=== PATIENT | female | born 1975 | race Caucasian/White ===

== ENCOUNTER 2017-10-06 14:27 | Emergency (ER) | payer OTHER ==
--- NOTE | 2017-10-06 14:50 | ERPHSYRPT ---
- History of Present Illness Time Seen by Provider: 10/06/17 14:37 Historian: patient, EMS Exam Limitations: no limitations Physician History: The patient is a 42-year-old female brought in by ambulance from home where she experienced a sudden onset of lower abdominal pain about 30 minutes before calling the ambulance. She describes the pain as very sharp. She was nauseated. She has a history of IBS and had just eaten a sandwich from [employer] when the pain began. She thought this pain was similar to what usually happens after eating. After she eats, she develops abdominal pain that is soon followed by an urge to have a bowel movement. The same thing happened today. She had a bowel movement after the pain had begun, but the pain did not subside after the bowel movement. She did not vomit. She denies fever or chills. Her LMP was 2 weeks ago. EMS gave the patient fentanyl 100 g and Zofran 4 mg IV. Her past medical history is significant for IBS, COPD, depression, and migraine headaches. Timing/Duration: today, hour(s) (1) Activities at Onset: other (eating) Quality: burning, cramping, sharpness, stabbing Abdominal Pain Onset Location: suprapubic Pain Radiation: no radiation Severity of Pain-Max: severe Severity of Pain-Current: severe Modifying Factors: Improves With: nothing Associated Symptoms: nausea Previous symptoms: same symptoms as today Allergies/Adverse Reactions: marijuana Allergy (Verified 10/06/17 14:53) acetaminophen [From Vicodin] Adverse Reaction (Verified 10/06/17 14:53) hydrocodone [From Vicodin] Adverse Reaction (Verified 10/06/17 14:53) morphine Adverse Reaction (Verified 10/06/17 14:53) Home Medications: Albuterol Sulfate [Albuterol Sulfate Hfa] 2 puffs Q12H PRN PRN 10/06/17 [History ] Fluoxetine HCl 20 mg [Prozac 20 MG] 80 mg DAILY 10/06/17 [History] Gabapentin [Neurontin] 300 mg PO TID 10/06/17 [History] - Review of Systems Constitutional: No Fever, No Chills Eyes: No Symptoms Ears, Nose, & Throat: No Symptoms Respiratory: No Cough, No Dyspnea Cardiac: No Chest Pain, No Edema, No Syncope Abdominal/Gastrointestinal: Abdominal Pain, Nausea, No Diarrhea Genitourinary Symptoms: No Dysuria Musculoskeletal: No Back Pain, No Neck Pain Skin: No Rash Neurological: No Dizziness, No Focal Weakness, No Sensory Changes Psychological: No Symptoms Endocrine: No Symptoms Hematologic/Lymphatic: No Symptoms Immunological/Allergic: No Symptoms All Other Systems: Reviewed and Negative - Nursing Vital Signs Nursing Vital Signs: Initial Vital Signs Temperature 97.9 F 10/06/17 14:29 Pulse Rate 88 10/06/17 14:29 Respiratory Rate 16 10/06/17 14:29 O2 Sat by Pulse Oximetry 99 10/06/17 14:29 Pain Scale Pain Intensity 5 - Physical Exam General Appearance: mild distress Eye Exam: PERRL/EOMI, eyes nml inspection Ears, Nose, Throat Exam: normal ENT inspection, pharynx normal, moist mucous membranes Neck Exam: normal inspection, non-tender, supple, full range of motion Respiratory Exam: normal breath sounds, lungs clear, No respiratory distress Cardiovascular Exam: regular rate/rhythm, normal heart sounds Gastrointestinal/Abdomen Exam: soft, normal bowel sounds, tenderness (RUQ ), No guarding Pelvic Exam: not done Rectal Exam: not done Back Exam: normal inspection, normal range of motion, No CVA tenderness, No vertebral tenderness Extremity Exam: normal inspection, normal range of motion, pelvis stable Neurologic Exam: alert, oriented x 3, cooperative, normal mood/affect, nml cerebellar function, sensation nml, No motor deficits Skin Exam: normal color, warm, dry SpO2 Interpretation: normal - Course EKG Interpreted by Me: RATE, Sinus Rhythm, NORMAL AXIS, Right Bundle Branch Block, NORMAL ST-T - Radiology Exams Abdomen X-ray Interpretation: Teleradiologist Report, Negative (per DR Ricketts.) Chest X-ray Interpretation: Teleradiologist Report, Negative (per Dr Ricketts) - CT Exams Abdomen/Pelvis CT Interpretation: Tele-radiologist Report, Other (suspected ruptured 2 cm right ovarian cyst per Dr Ricketts.) Ordered Tests: Active Orders 24 hr Category Date Time Status EKG-ER Only STAT Care 10/06/17 14:49 Active IV Insertion STAT Care 10/06/17 14:49 Active ABDOMEN AND PELVIS W/0 CONTRAS [CT] Stat Exams 10/06/17 16:28 Completed OBSTR/ACUTE ABDOMEN SERIES Stat Exams 10/06/17 14:50 Completed AMYLASE Stat Lab 10/06/17 14:30 Completed CBC W DIFF Stat Lab 10/06/17 14:30 Completed CMP Stat Lab 10/06/17 14:30 Completed CULTURE,URINE Stat Lab 10/06/17 16:00 Received HCG QUALITATIVE,SERUM Stat Lab 10/06/17 14:30 Completed LIPASE Stat Lab 10/06/17 14:30 Completed Lactic Acid Stat Lab 10/06/17 14:49 Completed TROPONIN Q3H Lab 10/06/17 14:30 Completed TROPONIN Q3H Lab 10/06/17 18:00 Ordered TROPONIN Q3H Lab 10/06/17 21:00 Ordered TROPONIN Q3H Lab 10/07/17 00:00 Ordered TROPONIN Q3H Lab 10/07/17 03:00 Ordered UA W/ MICROSCOPIC Stat Lab 10/06/17 16:00 Completed Urine Triage Profile Stat Lab 10/06/17 16:00 Completed Medication Summary Generic Name Dose Route Start Last Admin Trade Name Freq PRN Reason Stop Dose Admin Ketorolac Tromethamine 30 mg 10/06/17 17:44 Toradol 30 Mg Injection IV 10/06/17 17:45 STAT ONE Discontinued Medications Generic Name Dose Route Start Last Admin Trade Name Freq PRN Reason Stop Dose Admin Sodium Chloride 1,000 mls @ 999 mls/hr 10/06/17 14:49 10/06/17 15:16 Sodium Chloride 0.9% 1000 Ml IV 10/06/17 15:49 999 mls/hr .Q1H1M STA Administration Sodium Chloride Confirm 10/06/17 15:16 Sodium Chloride 0.9% 1000 Ml Administered 10/06/17 15:17 Dose 1,000 mls @ ud .ROUTE .[facility] Lab/Rad Data: Laboratory Result Diagrams 10/06/17 14:30 10/06/17 14:30 Laboratory Results 10/06/17 10/06/17 10/06/17 Range/Units 16:00 16:00 14:49 WBC (4.0-10.5) K/mm3 RBC (4.1-5.4) M/mm3 Hgb (12.0-16.0) gm/dl Hct (35-47) % MCV (78-100) fl MCH (26-32) pg MCHC (32-36) g/dl RDW (11.5-14.0) % Plt Count (150-450) K/mm3 MPV (6-9.5) fl Gran % (36.0-66.0) % Lymphocytes % (24.0-44.0) % Monocytes % (0.0-12.0) % Eosinophils % (0.00-5.0) % Basophils % (0.0-0.4) % Basophils # (0-0.4) Sodium (136-145) mEq/L Potassium (3.5-5.1) mEq/L Chloride (98-107) mEq/L Carbon Dioxide (21-32) mEq/L Anion Gap (5-15) MEQ/L BUN (9-20) mg/dL Creatinine (0.55-1.30) mg/dl Estimated GFR ML/MIN Glucose (70-110) MG/DL Lactic Acid 0.7 (0.4-2.0) Calcium (8.5-10.1) mg/dL Total Bilirubin (0.2-1.0) mg/dL AST (15-37) U/L ALT (12-78) U/L Alkaline Phosphatase (46-116) U/L Troponin I (0.000-0.056) ng/ml Serum Total Protein (6.4-8.2) gm/dL Albumin (3.4-5.0) g/dL Amylase (25-115) U/L Lipase (73-393) U/L Serum , Qual (Negative) Ur Collection Type CLEAN CATCH Urine Color YELLOW (YELLOW) Urine Appearance HAZY (CLEAR) Urine pH 5.0 (5-6) Ur Specific [place] 1.020 (1.005-1.025) Urine Protein 30 (Negative) Urine Ketones NEGATIVE (NEGATIVE) Urine Blood 50 (0-5) Ramon/ul Urine Nitrite NEGATIVE (NEGATIVE) Urine Bilirubin NEGATIVE (NEGATIVE) Urine Urobilinogen NORMAL (0-1) mg/dL Ur Leukocyte Esterase NEGATIVE (NEGATIVE) Urine Microscopic RBC 2-5 (0-2) /HPF Urine Microscopic WBC 0-2 (0-5) /HPF Ur Epithelial Cells FEW (FEW) /HPF Urine Bacteria RARE (NEGATIVE) /HPF Urine Culture Reflexed YES (NO) Urine Glucose NEGATIVE (NEGATIVE) mg/dL Urine Opiates Level NEG. (NEGATIVE) Ur Methadone NEG. (NEGATIVE) Urine Barbiturates NEG. (NEGATIVE) Ur Phencyclidine (PCP) NEG. (NEGATIVE) Urine Amphetamine NEG. (NEGATIVE) U Benzodiazepine Level NEG. (NEGATIVE) Urine Cocaine NEG. (NEGATIVE) Urine Marijuana (THC) NEG. (NEGATIVE) Specimen Received 10/06/2017 1600 10/06/17 10/06/17 10/06/17 Range/Units 14:30 14:30 14:30 WBC (4.0-10.5) K/mm3 RBC (4.1-5.4) M/mm3 Hgb (12.0-16.0) gm/dl Hct (35-47) % MCV (78-100) fl MCH (26-32) pg MCHC (32-36) g/dl RDW (11.5-14.0) % Plt Count (150-450) K/mm3 MPV (6-9.5) fl Gran % (36.0-66.0) % Lymphocytes % (24.0-44.0) % Monocytes % (0.0-12.0) % Eosinophils % (0.00-5.0) % Basophils % (0.0-0.4) % Basophils # (0-0.4) Sodium 139 (136-145) mEq/L Potassium 3.9 (3.5-5.1) mEq/L Chloride 105 (98-107) mEq/L Carbon Dioxide 24.5 (21-32) mEq/L Anion Gap 13.8 (5-15) MEQ/L BUN 11 (9-20) mg/dL Creatinine 0.99 (0.55-1.30) mg/dl Estimated GFR > 60 ML/MIN Glucose 96 (70-110) MG/DL Lactic Acid (0.4-2.0) Calcium 9.3 (8.5-10.1) mg/dL Total Bilirubin 0.40 (0.2-1.0) mg/dL AST 17 (15-37) U/L ALT 16 (12-78) U/L Alkaline Phosphatase 99 (46-116) U/L Troponin I < 0.017 (0.000-0.056) ng/ml Serum Total Protein 8.6 H (6.4-8.2) gm/dL Albumin 3.9 (3.4-5.0) g/dL Amylase 52 (25-115) U/L Lipase 156 (73-393) U/L Serum , Qual NEGATIVE (Negative) Ur Collection Type Urine Color (YELLOW) Urine Appearance (CLEAR) Urine pH (5-6) Ur Specific [place] (1.005-1.025) Urine Protein (Negative) Urine Ketones (NEGATIVE) Urine Blood (0-5) Ramon/ul Urine Nitrite (NEGATIVE) Urine Bilirubin (NEGATIVE) Urine Urobilinogen (0-1) mg/dL Ur Leukocyte Esterase (NEGATIVE) Urine Microscopic RBC (0-2) /HPF Urine Microscopic WBC (0-5) /HPF Ur Epithelial Cells (FEW) /HPF Urine Bacteria (NEGATIVE) /HPF Urine Culture Reflexed (NO) Urine Glucose (NEGATIVE) mg/dL Urine Opiates Level (NEGATIVE) Ur Methadone (NEGATIVE) Urine Barbiturates (NEGATIVE) Ur Phencyclidine (PCP) (NEGATIVE) Urine Amphetamine (NEGATIVE) U Benzodiazepine Level (NEGATIVE) Urine Cocaine (NEGATIVE) Urine Marijuana (THC) (NEGATIVE) Specimen Received 10/06/17 Range/Units 14:30 WBC 12.5 H (4.0-10.5) K/mm3 RBC 4.30 (4.1-5.4) M/mm3 Hgb 8.7 L (12.0-16.0) gm/dl Hct 30.0 L (35-47) % MCV 69.8 L (78-100) fl MCH 20.2 L (26-32) pg MCHC 29.0 L (32-36) g/dl RDW 18.0 H (11.5-14.0) % Plt Count 412 (150-450) K/mm3 MPV 10.7 H (6-9.5) fl Gran % 60.2 (36.0-66.0) % Lymphocytes % 22.0 L (24.0-44.0) % Monocytes % 7.8 (0.0-12.0) % Eosinophils % 8.8 H (0.00-5.0) % Basophils % 1.2 (0.0-0.4) % Basophils # 0.15 (0-0.4) Sodium (136-145) mEq/L Potassium (3.5-5.1) mEq/L Chloride (98-107) mEq/L Carbon Dioxide (21-32) mEq/L Anion Gap (5-15) MEQ/L BUN (9-20) mg/dL Creatinine (0.55-1.30) mg/dl Estimated GFR ML/MIN Glucose (70-110) MG/DL Lactic Acid (0.4-2.0) Calcium (8.5-10.1) mg/dL Total Bilirubin (0.2-1.0) mg/dL AST (15-37) U/L ALT (12-78) U/L Alkaline Phosphatase (46-116) U/L Troponin I (0.000-0.056) ng/ml Serum Total Protein (6.4-8.2) gm/dL Albumin (3.4-5.0) g/dL Amylase (25-115) U/L Lipase (73-393) U/L Serum , Qual (Negative) Ur Collection Type Urine Color (YELLOW) Urine Appearance (CLEAR) Urine pH (5-6) Ur Specific [place] (1.005-1.025) Urine Protein (Negative) Urine Ketones (NEGATIVE) Urine Blood (0-5) Ramon/ul Urine Nitrite (NEGATIVE) Urine Bilirubin (NEGATIVE) Urine Urobilinogen (0-1) mg/dL Ur Leukocyte Esterase (NEGATIVE) Urine Microscopic RBC (0-2) /HPF Urine Microscopic WBC (0-5) /HPF Ur Epithelial Cells (FEW) /HPF Urine Bacteria (NEGATIVE) /HPF Urine Culture Reflexed (NO) Urine Glucose (NEGATIVE) mg/dL Urine Opiates Level (NEGATIVE) Ur Methadone (NEGATIVE) Urine Barbiturates (NEGATIVE) Ur Phencyclidine (PCP) (NEGATIVE) Urine Amphetamine (NEGATIVE) U Benzodiazepine Level (NEGATIVE) Urine Cocaine (NEGATIVE) Urine Marijuana (THC) (NEGATIVE) Specimen Received - Progress Progress: improved Progress Note: 10/06/17 17:44 Pt was sleeping on cot after IV fluids. Counseled pt/family regarding: lab results, diagnosis, need for follow-up, rad results - Departure Time of Disposition: 17:45 Departure Disposition: Home Clinical Impression: Ruptured ovarian cyst Condition: Stable Critical Care Time: No Referrals: BUCKY SALOMON MD [Primary Care Provider] - Additional Instructions: You have a right ovarian cyst that has ruptured. You were given Toradol 30 mg and fluids by IV in the ER. Take Toradol 10 mg every 6 hours as needed for pain. Follow up tomorrow as scheduled with Dr. Salomon. Prescriptions: Ketorolac Tromethamine [Toradol] 10 mg PO Q6H PRN PRN #12 tablet PRN Reason: Pain Ondansetron ODT 4 MG [Zofran Odt 4 mg] 1 tab PO Q6H PRN PRN #10 tab.rapdis PRN Reason: Nausea/Vomiting
[2017-10-06 15:11] LABS: BASOPHIL % 1.2 % (0.0-0.4); Basophil (Absolute #) 0.15 (0-0.4); Eosinophil % 8.8 % (0.00-5.0); Granulocyte Absolute (ANC) 7.52 (1.4-6.9); Granulocytes % 60.2 % (36.0-66.0); Hemoglobin 8.7 gm/dl (12.0-16.0); Lymphocyte (Absolute #) 2.74 (1.0-4.6); Mean Cell Volume 69.8 fl (78-100); Mean Corpuscular Hemoglobin 20.2 pg (26-32); Mean Platelet Volume 10.7 fl (6-9.5); Monocyte (Absolute #) 0.97 (0.0-1.3); Monocytes % 7.8 % (0.0-12.0); Platelet Count 412 K/mm3 (150-450); White Blood Count 12.5 K/mm3 (4.0-10.5)
[2017-10-06] MEDS: Sodium Chloride 0.9% 1000 ML 1,000 ML IV STA (15:16)
[2017-10-06] MEDS ORDERED: Sodium Chloride 0.9% 1000 ML 1,000 ML ONE (15:16)
[2017-10-06 15:36] LABS: ALBUMIN 3.9 g/dL (3.4-5.0); ALKALINE PHOSPHATASE 99 U/L (46-116); AMYLASE 52 U/L (25-115); ANION GAP 13.8 MEQ/L (5-15); BLOOD UREA NITROGEN 11 mg/dL (9-20); CHLORIDE 105 mEq/L (98-107); Calcium 9.3 mg/dL (8.5-10.1); Carbon Dioxide 24.5 mEq/L (21-32); Creatinine 1 0.99 mg/dl (0.55-1.30); EST GLOMERULAR FILTRATION RATE > 60 ML/MIN; Glucose 96 MG/DL (70-110); LIPASE 156 U/L (73-393); Potassium 3.9 mEq/L (3.5-5.1); SGOT/AST 17 U/L (15-37); SGPT/ALT 16 U/L (12-78); SODIUM 139 mEq/L (136-145); Total Protein 8.6 gm/dL (6.4-8.2)
--- NOTE | 2017-10-06 16:11 | XRAY ---
Indication: Lower abdominal pain. Vomiting. Blood in stool. History IBS. Comparison: None 2 views of the abdomen nonacute and nonobstructed. Solid organs unremarkable. Osseous structures intact with moderate double curvature thoracolumbar scoliosis. Single frontal chest answers normal heart and lungs. Impression: Negative abdomen. Normal 1 view chest. Incidental scoliosis.
[2017-10-06 16:13] LABS: Amphetamine,Urine NEG. (NEGATIVE); Barbiturate,Urine NEG. (NEGATIVE); Benzodiazepine,Urine NEG. (NEGATIVE); Cocaine,Urine NEG. (NEGATIVE); Methadone,Urine NEG. (NEGATIVE); Opiate,Urine NEG. (NEGATIVE); PCP,Urine NEG. (NEGATIVE); THC,Urine NEG. (NEGATIVE)
[2017-10-06 16:18] LABS: Appearance HAZY (CLEAR); Bilirubin NEGATIVE (NEGATIVE); Blood 50 Ery/ul (0-5); Glucose NEGATIVE (NEGATIVE); Ketones NEGATIVE (NEGATIVE); Leukocyte Esterase NEGATIVE (NEGATIVE); Nitrite NEGATIVE (NEGATIVE); Protein,Urine Dip 30 (Negative); Urobilinogen NORMAL mg/dL (0-1)
[2017-10-06 16:19] LABS: Bacteria RARE /HPF (NEGATIVE); Epithelial Cells FEW /HPF (FEW); WBC 0-2 /HPF (0-5)
--- NOTE | 2017-10-06 17:14 | XRAY ---
Indication: Lower abdomen/pelvic pain. Multiple contiguous axial images obtained through the abdomen and pelvis without contrast as ordered. Comparison: None Lung bases demonstrate tiny right lower lobe calcified granuloma. No Infiltrate or effusion. Heart is not enlarged. Noncontrasted stomach and bowel loops appear nonobstructed. Appendix not seen. 2 cm right ovary cyst with small cul-de-sac fluid presumed from rupture/leaking cyst. No walled off fluid collection or free air. Nonobstructing left renal punctate calculus. Remaining liver, gallbladder, pancreas, spleen, adrenal glands, kidneys, ureters, bladder, and uterus appear unremarkable for noncontrast exam. Minimal aortic calcifications without AAA. Osseous structures intact with mild degenerative changes throughout the spine. Impression: 1. Suspect ruptured/leaking 2 cm right ovary cyst with small cul-de-sac fluid. 2. Nonobstructing left renal micro-calculus. 3. Remaining CT abdomen/pelvis without contrast exam is negative. CTDI 23.42
[2017-10-06] MEDS ORDERED: TORAdol 30 mg Injection ONE (17:47)
[2017-10-06] MEDS: TORAdol 30 mg Injection IV ONE (17:48)
[2017-10-06 18:02] VITALS: BP 139/94; PULSE 96; O2SAT 98
[2017-10-06 18:18] LABS: Slide Review 1 YES
== END 2017-10-06 18:17 | disposition home or self-care (01) ==
LOC: ED 14:27
DX: N83.299 Other ovarian cyst, unspecified side (principal)
CPT/HCPCS: 36000; 36415; 74022; 74176; 80053; 80307; 81000; 82150; 83605; 83690; 84484; 84703; 85025; 87086; 93005; 96360; 96374; 99284; J1885